=== PATIENT | male | born 1960 | race Caucasian/White ===

== ENCOUNTER 2018-05-25 08:30 | Day surgery (SDC) | payer BC ==
[~2018-05-25 08:30] MED LIST: Lactated Ringers 1,000 ML IV SCH
[2018-05-25] MEDS ORDERED: Lidocaine/EPINEPHrine/Tetracaine Soln 5 ML Each TOP ONE (10:10)
[2018-05-25] MEDS ORDERED: Midazolam 1 MG/ML 2 ML SDV ONE (11:23)
[2018-05-25] MEDS ORDERED: Propofol 200 MG/20 ML SDV ONE ×2 (11:23→12:01)
[2018-05-25] MEDS ORDERED: fentaNYL 100 MCG/2 ML SDV ONE (11:23)
--- NOTE | 2018-05-25 13:01 | OR ---
PREOPERATIVE DIAGNOSIS: Screening colonoscopy. POSTOPERATIVE DIAGNOSIS: Normal colonoscopic exam. PROCEDURE PROPOSED: Total flexible colonoscopy. PROCEDURE DONE: Total flexible colonoscopy. INDICATION: This is a 58-year-old gentleman who comes in for a 10-year followup screening colonoscopy. He denies any symptomatology. He does feel he likely has some hemorrhoids internally and externally. He has a negative family history for any colon cancer. DESCRIPTION OF PROCEDURE: Technique and Findings: The patient was brought to the endoscopy suite, placed in left lateral decubitus position. He was sedated per FI[employer] GROWER with propofol. The flexible video colonoscope was then passed transanally and under visualization advanced to the cecum. Examination revealed normal ascending, transverse, descending, sigmoid, and rectal colon. There was no evidence of any polyps, colitis, diverticulosis, or any other abnormalities and the anal exam will be performed more thoroughly with a lighted anoscope. His prostate exam was normal on digital exam. IMPRESSION: Normal colonoscopic exam. PLAN: The patient will also have anoscopy to further evaluate the anal area. I feel he is good for 10 years before he needs a repeat colonoscopy. SCM: 05/25/2018 12:23:21 MODL: 05/25/2018 12:54:38 /[id number]
--- NOTE | 2018-05-25 13:09 | OR ---
PREOPERATIVE DIAGNOSIS: Anal protrusion with bleeding. POSTOPERATIVE DIAGNOSIS: Internal hemorrhoids, probable minor rectal prolapsing, 3 external anal tags. PROCEDURE PROPOSED: Anoscopy. PROCEDURE DONE: Lighted anoscopy with hemorrhoid banding x2. DESCRIPTION OF PROCEDURE: Technique: The patient was already sedated from his colonoscopy. The lighted anoscope was then inserted and he was inspected in the right anterior, right posterior, and left lateral quadrants. He appeared to have some mildly edematous mucosa compatible with some rectal prolapsing but he also appeared to have some internal hemorrhoids. I banded an internal hemorrhoids at the right anterior quadrant and one in the right posterior quadrant using suction hemorrhoid banding technique. He tolerated the procedure well. FINAL IMPRESSION: 1. Internal hemorrhoids, banding x2 done. 2. Probable mild rectal prolapsing as well. PLAN: We will wait and see how much the hemorrhoid banding helps him. He potentially may need further intervention for his problem such as stapled hemorrhoidopexy procedure with excision of the external tags at the same time that would be a decision for later down the road if he has not been helped with what was done today. SCM: 05/25/2018 12:23:21 MODL: 05/25/2018 12:57:26 /[id number]
== END 2018-05-25 14:10 | disposition home or self-care (01) ==
LOC: VM.SDS 08:30
PROVIDERS: ATTEND Surgery
DX: K64.8 Other hemorrhoids (principal); K64.4 Residual hemorrhoidal skin tags; Z12.11 Encounter for screening for malignant neoplasm of colon; I10 Essential (primary) hypertension; E11.9 Type 2 diabetes mellitus without complications; E66.01 Morbid (severe) obesity due to excess calories; Z99.89 Dependence on other enabling machines and devices; J45.909 Unspecified asthma, uncomplicated; G47.33 Obstructive sleep apnea (adult) (pediatric); K21.9 Gastro-esophageal reflux disease without esophagitis; Z79.899 Other long term (current) drug therapy
CPT/HCPCS: A9270-GY; J2250; J2704; J3010; J7120

== ENCOUNTER 2018-10-30 09:22 | Day surgery (SDC) | payer BC ==
[~2018-10-30 09:22] MED LIST changes: +Sodium Chloride 0.9% 10 ML Syringe FLUSH PRN; +ceFAZolin 1 GM Vial IVPUSH ONE
[2018-10-30] MEDS ORDERED: Midazolam 1 MG/ML 2 ML SDV ONE ×2 (11:26→12:29)
[2018-10-30] MEDS ORDERED: ceFAZolin 1 GM Vial ONE (11:26)
[2018-10-30] MEDS ORDERED: fentaNYL 100 MCG/2 ML SDV ONE (11:26)
[2018-10-30] MEDS ORDERED: Ketamine 200 MG/20 ML MDV ONE (11:26)
[2018-10-30] MEDS ORDERED: Phenylephrine 1% 10 MG/ML SDV ONE ×2 (12:54→13:24)
[2018-10-30] MEDS ORDERED: Bupivacaine 0.25%/EPINEPHrine 1:200,000 30 ML SDV INJECT ONE ×2 (13:11)
[2018-10-30] MEDS ORDERED: Ondansetron 4 MG/2 ML SDV IVPUSH PRN (14:08)
[2018-10-30] MEDS ORDERED: Morphine 2 MG/ML Syringe IVPUSH PRN (14:09)
[2018-10-30] MEDS ORDERED: Ibuprofen 200 MG Tab PO PRN (14:13)
--- NOTE | 2018-10-30 14:16 | OR ---
PREOPERATIVE DIAGNOSES: 1. Rectal prolapse with hemorrhoids. 2. External anal tags. POSTOPERATIVE DIAGNOSES: 1. Rectal prolapse with hemorrhoids. 2. External anal tags. PROCEDURE PROPOSED: 1. Circular stapled hemorrhoidopexy. 2. Excision of external hemorrhoidal tags x2. PROCEDURE DONE: 1. Circular stapled hemorrhoidopexy. 2. Excision of external hemorrhoidal tags x2. INDICATIONS: This is a 58-year-old gentleman bothered with some hemorrhoids and some mild prolapsing. He did have recent colonoscopy confirming what appears to be some redundance of his rectum, and after discussion of situation, it was felt that he would be a good candidate for the stapled PPH surgery and then also to remove some external anal tags. TECHNIQUE: The patient was brought to the operative suite, initially given a saddle block, put into the prone Sam knife position but started having some trouble breathing. It was felt that the saddle block spinal got a little too high. We therefore repositioned him back onto the cart, and he was intubated by SHINGLES ROOFER and then placed back into the prone Sam knife position, and the perianal area was then sterilely prepped and draped. A perianal block was performed with 0.25% Marcaine with epinephrine using about 20 mL. A 3 finger dilatation was performed. I then used the prepackaged PPH stapler. The circular retractor was put in position and anchored with 4 stitches of 3-0 Prolene. The pursestring suture was then used with 2-0 Prolene, doing a pursestring suture at about 3 cm to 4 cm depth from the dentate line circumferentially. The PPH stapler was then placed across the pursestring line, which was then cinched up, and the 33 mm stapler was fired and held for a minute. It was then opened up, and a complete ring was noted and did not feel the need to be submitted for pathologic examination. The stapled ring was inspected and appeared to be good without any signs of bleeding. He had 2 significant external anal tags that were removed. They were fairly close in proximity, and then an open incision was closed in a circumferential direction with a running 4-0 Vicryl. After completion, everything looked much improved from his preoperative condition, and he was placed back onto his back on the cart and recovered by SHINGLES ROOFER and taken to the recovery room in good condition. Blood loss was less than 5 mL. SCM: 10/30/2018 13:40:13 MODL: 10/30/2018 14:10:48 /[id number]
[2018-10-30] MEDS ORDERED: Ketorolac 30 MG/ML SDV IVPUSH ONE (14:26)
== END 2018-10-30 17:22 | disposition home or self-care (01) ==
LOC: VM.SDS 09:22
PROVIDERS: ATTEND Surgery
DX: K62.3 Rectal prolapse (principal); K64.9 Unspecified hemorrhoids; K64.4 Residual hemorrhoidal skin tags
CPT/HCPCS: 46230; 46947; J0690; J1885; J2250; J2270; J2370; J3010; J7120

== ENCOUNTER 2020-01-07 18:55 | Emergency (ER) | payer BC ==
[2020-01-07] MEDS ORDERED: Sodium Chloride 0.9% 10 ML Syringe FLUSH PRN (19:11)
[2020-01-07] MEDS ORDERED: methylPREDNISolone Sodium Succinate 125 MG/2 ML SDV IVPUSH ONE (19:19)
--- NOTE | 2020-01-07 19:36 | EDM.PDOC ---
ED HPI GENERAL MEDICAL PROBLEM - General Chief Complaint: Respiratory Problem Stated Complaint: WORSENING SOB Time Seen by Provider: 01/07/20 19:00 Source of Information: Reports: Patient History Limitations: Reports: No Limitations - History of Present Illness INITIAL COMMENTS - FREE TEXT/NARRATIVE: Patient comes into the emergency department with progressing shortness of breath with COVID-19 diagnosis. Patient states that he was diagnosed with Covid 19 approximately 1 week ago with mild to moderate symptoms of body ache, fatigue, low-grade fever less than 100, and cough. However the patient states in the last 24 hours he has had an increasing in shortness of breath. He states that it is worse when he is walking up the stairs. He states that it does take him quite a few minutes after walking up the steps to regain his shortness of breath. He denies having any shortness of breath at rest at rest. Patient states that his ongoing fatigue has been significant this entire time that has not improved. Patient has been taking [id number] zinc, vitamin D, and vitamin C to help with improving his symptoms. Patient states that he is concerned regarding increase shortness of breath for he does have underlying diagnosis of asthma which he has needed his inhaler more significantly in the last 24 hours as well as sleep apnea. Onset: Sudden Quality: Reports: Other Severity: Moderate Improves with: Reports: Rest Worsens with: Reports: Movement Associated Symptoms: Reports: No Other Symptoms mild headache Pain Score (Numeric/FACES): 2 - Related Data Allergies Allergy/AdvReac Type Severity Reaction Status Date / Time shellfish derived Allergy Severe Anaphylactic Verified 01/07/20 20:23 Shock cat dander Allergy Intermediate Itching Verified 01/07/20 20:23 chlorhexidine Allergy Intermediate Itching Verified 01/07/20 20:23 [From Hibiclens] nitrile Allergy Itching Verified 01/07/20 20:23 MICHOACANO Inhibitors AdvReac Intermediate Cough Verified 01/07/20 20:23 Home Meds: Home Meds Acetaminophen [Tylenol Extra Strength] 1,000 mg PO Q4H PRN 01/29/18 [History] Albuterol Sulfate [Proair Hfa] 2 puff IH Q4H PRN 01/29/18 [History] Aspirin [Halfprin] 81 mg PO DAILY 01/29/18 [History] Azelastine HCl [Azelastine] 2 spray JA BID PRN 01/29/18 [History] Benzonatate [Tessalon Perle] 100 mg PO TID PRN 01/29/18 [History] Calcium Gluconate 2,000 mg PO DAILY 01/29/18 [History] Cholecalciferol (Vitamin D3) [Vitamin D3] 5,000 unit PO DAILY 01/29/18 [History] Clobetasol Propionate [Temovate Cream] 1 applic TP BID PRN 01/29/18 [History] Cyanocobalamin (Vitamin B-12) [B-12] 1,000 mcg PO DAILY 01/29/18 [History] EPINEPHrine [Auvi-Q] 0.3 mg IJ ASDIRECTED PRN 01/29/18 [History] Fluticasone/Salmeterol [Advair 100-50] 1 puff INH BID 01/29/18 [History] Montelukast [Singulair] 10 mg PO DAILY 01/29/18 [History] Multivitamin [Multi-Vitamin Daily] 1 each PO DAILY 01/29/18 [History] Orphenadrine [Norflex] 100 mg PO BID 01/29/18 [History] Thiamine HCl 125 mg PO DAILY 01/29/18 [History] Triamcinolone Acetonide [Triamcinolone Acetonide 0.025%] 1 dose TP BID 01/29/18 [History] predniSONE [Prednisone] 20 mg PO ASDIRECTED PRN 01/29/18 [History] Cyclobenzaprine [Flexeril] 10 mg PO TID PRN 05/21/18 [History] Erythromycin Base in Ethanol [Erythromycin 2% Gel] 1 dose TP BID 05/21/18 [History] Iron 120 mg PO BID 05/21/18 [History] [place]-3/DHA/Epa/Fish Oil [[place]-3 Fish Oil 1,000 MG Sfgl] 1,000 mg PO DAILY 05/21/18 [History] Testosterone Cypionate [Depo-Testosterone] 250 mg IM Q14D 05/21/18 [History] Desloratadine 5 mg PO DAILY 10/22/18 [History] Econazole Nitrate 1 applic TP BID 10/22/18 [History] Fluticasone Furoate [Flonase Sensimist] 1 spray NASBOTH DAILY 10/22/18 [History] Non-Formulary Medication [NF Drug] 1 tab PO DAILY 10/22/18 [History] Azithromycin 250 mg PO 5XDAY #6 tablet 01/07/20 [Rx] predniSONE [Prednisone] 20 mg PO BID 5 Days #10 tablet 01/07/20 [Rx] Past Medical History HEENT History: Reports: Allergic Rhinitis Cardiovascular History: Reports: High Cholesterol, Hypertension, Other (See Below) Other Cardiovascular History: venous statis. elevated LFT. 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 Gastrointestinal History: Reports: GERD, Hemorrhoids Genitourinary History: Reports: Other (See Below) Other Genitourinary History: Erectile dysfunction Musculoskeletal History: Reports: Osteoarthritis, Other (See Below) Other Musculoskeletal History: chronic pain Psychiatric History: Reports: Depression, Eating Disorders Endocrine/Metabolic History: Hematologic History: Reports: Anemia, Iron Deficiency Immunologic History: Reports: Other (See Below) Other 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 upper gastrointestinal endoscopy. vertical banded gastroplasty. hemorrhoidectomy Musculoskeletal Surgical History: Reports: Joint Replacement, Other (See Below) Other Musculoskeletal Surgeries/Procedures:: partial removal of sternum ED ROS GENERAL - Review of Systems Review Of Systems: See Below Constitutional: Reports: Malaise, Weakness, Fatigue HEENT: Reports: No Symptoms Respiratory: Reports: Shortness of Breath, Wheezing, Cough Cardiovascular: Reports: No Symptoms Endocrine: Reports: Fatigue GI/Abdominal: Reports: No Symptoms : Reports: No Symptoms Musculoskeletal: Reports: No Symptoms Skin: Reports: No Symptoms Neurological: Reports: No Symptoms Psychiatric: Reports: No Symptoms Hematologic/Lymphatic: Reports: No Symptoms Immunologic: Reports: No Symptoms ED EXAM, GENERAL - Physical Exam Exam: See Below Exam Limited By: No Limitations General Appearance: Alert, WD/WN, No Apparent Distress Eye Exam: Bilateral Eye: EOMI, PERRL Nose: Normal Inspection, Normal Mucosa Throat/Mouth: Normal Inspection, Normal Lips, Normal Oropharynx, Normal Voice Head: Atraumatic, Normocephalic Neck: Normal Inspection, Supple, Non-Tender Respiratory/Chest: Decreased Breath Sounds, Wheezing Cardiovascular: Normal Peripheral Pulses, Regular Rate, Rhythm, No Edema GI/Abdominal: Normal Bowel Sounds, Soft, Non-Tender, No Distention, No Abnormal Bruit Back Exam: Normal Inspection, Full Range of Motion Extremities: Normal Inspection, Normal Range of Motion, Non-Tender, Normal Capillary Refill Neurological: Alert, Oriented, CN II-XII Intact, Normal Gait, No Motor/Sensory Deficits Psychiatric: Normal Affect, Normal Mood Skin Exam: Warm, Dry, Intact Course - Vital Signs Last Recorded V/S: Last Vital Signs Temp 36.6 C 01/07/20 19:05 Pulse 72 01/07/20 19:05 Resp 16 01/07/20 19:05 BP 142/86 H 01/07/20 19:05 Pulse Ox 97 01/07/20 19:05 - Orders/Labs/Meds Orders: Active Orders 24 hr Category Date Time Status EKG Documentation Completion [RC] STAT Care 01/07/20 19:10 Active PROCALCITONIN [REF] Stat Lab 01/07/20 19:25 Received Sodium Chloride 0.9% [Saline Flush] Med 01/07/20 19:11 Active 10 ml FLUSH ASDIRECTED PRN Peripheral IV Insertion Adult [OM.PC] Stat Oth 01/07/20 19:10 Ordered Medication Orders Sodium Chloride (Saline Flush) 10 ml FLUSH ASDIRECTED PRN PRN Reason: Keep Vein Open Labs: Laboratory Tests 01/07/20 01/07/20 01/07/20 Range/Units 19:25 19:25 19:25 WBC 5.4 (4.0-10.0) x10^3/uL RBC 4.28 L (4.5-6.0) x10^6/uL Hgb 12.8 L D (14.0-18.0) g/dL Hct 38.3 L (40.0-52.0) % MCV 89.5 (78.0-93.0) fL MCH 29.9 (26.0-32.0) pg MCHC 33.4 (32.0-36.0) g/dL RDW Coeff of Oskar 12.8 (10.0-15.0) % Plt Count 143 (130-400) x10^3/uL Neut % (Auto) 69.7 (50.0-80.0) % Lymph % (Auto) 22.0 L (25.0-50.0) % Navarro % (Auto) 7.0 (2.0-11.0) % Eos % (Auto) 1.1 (0.0-4.0) % Baso % (Auto) 0.2 (0.2-1.2) % Sodium 134 L (136-145) mmol/L Potassium 3.8 (3.5-5.1) mmol/L Chloride 99 (98-107) mmol/L Carbon Dioxide 25 (21-32) mmol/L Anion Gap 13.8 (10-20) mmol/L BUN 15 (7-18) mg/dL Creatinine 1.0 (0.70-1.30) mg/dL Est Cr Clr Drug Dosing TNP Estimated GFR (MDRD) > 60 Glucose 300 H (74-106) mg/dL Lactic Acid 1.8 (0.4-2.0) mmol/L Calcium 8.3 L (8.5-10.1) mg/dL Corrected Calcium 8.62 (8.5-10.1) mg/dL Total Bilirubin 0.5 (0.2-1.0) mg/dL AST 57 H (15-37) U/L ALT 90 H (16-63) U/L Alkaline Phosphatase 90 (46-116) U/L NT-Pro-B Natriuret Pep 48 (<=125) pg/mL Total Protein 7.0 (6.4-8.2) g/dL Albumin 3.6 (3.4-5.0) g/dL Globulin 3.4 Albumin/Globulin Ratio 1.06 Meds: Medications Generic Name Dose Route Start Last Admin Trade Name Freq PRN Reason Stop Dose Admin Sodium Chloride 10 ml 01/07/20 19:11 Saline Flush FLUSH ASDIRECTED PRN Keep Vein Open Discontinued Medications Generic Name Dose Route Start Last Admin Trade Name Freq PRN Reason Stop Dose Admin Ceftriaxone Sodium 1 gm 01/07/20 20:23 Rocephin IVPUSH 01/07/20 20:24 ONETIME ONE Methylprednisolone Sodium Succinate 125 mg 01/07/20 19:19 Solu-Medrol IVPUSH 01/07/20 19:20 ONETIME ONE Departure - Departure Time of Disposition: 20:30 Disposition: Home, Self-Care 01 Condition: Good Clinical Impression: Pneumonia due to COVID-19 virus Pneumonia Qualifiers: Pneumonia type: due to unspecified organism Laterality: bilateral Lung location: lower lobe of lung Qualified Code(s): J18.9 - Pneumonia, unspecified organism - Discharge Information *PRESCRIPTION DRUG MONITORING PROGRAM REVIEWED*: Not Applicable *COPY OF PRESCRIPTION DRUG MONITORING REPORT IN PATIENT TIGIST: Not Applicable Prescriptions: Azithromycin 250 mg PO 5XDAY #6 tablet predniSONE [Prednisone] 20 mg PO BID 5 Days #10 tablet Instructions: Ceftriaxone injection, Community-Acquired Pneumonia, Adult, Probiotics Referrals: Hedy Ramirez DO [Primary Care Provider] - Forms: ED Department Discharge Additional Instructions: 1. rest 2. increase your water intake 3. Take all antibiotics as prescribed even if feeling better 4. Take a probiotic while on antibiotics to help promote healthy GI motility 5. Activity and diet as tolerated 6. Can use Ibuprofen and tylenol for any fever or discomfort 7. Follow up with your PCP or return if symptoms progress or worsen 8. Education provided to you regarding your illness, probiotics, antibiotic prescribed 9. Call with any questions or concerns Sepsis Event Note (ED) - Focused Exam Vital Signs: Vital Signs Temp Pulse Resp BP Pulse Ox 01/07/20 19:05 36.6 C 72 16 142/86 H 97 - My Orders Last 24 Hours: My Active Orders 01/07/20 19:10 EKG Documentation Completion [RC] STAT Peripheral IV Insertion Adult [OM.PC] Stat 01/07/20 19:11 Sodium Chloride 0.9% [Saline Flush] 10 ml FLUSH ASDIRECTED PRN 01/07/20 19:25 PROCALCITONIN [REF] Stat - Assessment/Plan Last 24 Hours: My Active Orders 01/07/20 19:10 EKG Documentation Completion [RC] STAT Peripheral IV Insertion Adult [OM.PC] Stat 01/07/20 19:11 Sodium Chloride 0.9% [Saline Flush] 10 ml FLUSH ASDIRECTED PRN 01/07/20 19:25 PROCALCITONIN [REF] Stat Assessment:: 1. SOB 2. Pneumonia- secondary to covid-19 Plan: 1. Labs completed in the ER. Results reviewed with the patient 2. IV initiated in the emergency department 3. chest xray completed in the ER 4. EKG completed in the ER 5. Rocephin 1gm given in the ER 6. Script sent home with azithromycin and prednisone 7. Patient and nursing staff was updated regarding the plan of care 8. Education provided the patient regarding activity, diet, rest, [id number] medication modalities, and follow-up care was provided 9. Patient and family are agreeable to the above plan of care 10. All questions and concerns were addressed with the patient and family prior to discharge 11. Did discuss the use of Bamlanivimab. Currently patient has a BMI of >35 and is older than 55> but does not have CAD, HTN or COPD. Currently we will withhold using this medication unless he returns with worsening symptoms despite use of abx treatment and steroids for pneumonia. Patient is agreeable with this plan.
[2020-01-07 19:55] LABS: CHLORIDE,CL 99 mmol/L (98-107); SODIUM,NA 134 mmol/L (136-145)
[2020-01-07 19:56] LABS: ANION GAP 13.8 mmol/L (10-20)
--- NOTE | 2020-01-07 20:13 | CR ---
[id number] RAD/RAD Chest Portable EXAM: RAD Chest Portable INDICATION: SOB, COVID+ COMPARISON: None. DISCUSSION: Cardiomediastinal silhouette is normal in size and contour. Bibasilar infiltrates. No pneumothorax or pleural effusion. IMPRESSION: Bibasilar pulmonary infiltrates. Findings are likely infectious/inflammatory in nature. Syed Caraballo DO 01/07/202011 Thank you for allowing us to participate in the care of your patient.
[2020-01-07] MEDS ORDERED: cefTRIAXone 1 GM Vial IVPUSH ONE (20:23)
== END 2020-01-07 21:00 | disposition home or self-care (01) ==
LOC: VM.ED 18:55
DX: U07.1 COVID-19 (principal); J12.89 Other viral pneumonia; I10 Essential (primary) hypertension; J45.909 Unspecified asthma, uncomplicated; M19.90 Unspecified osteoarthritis, unspecified site; Z91.048 Other nonmedicinal substance allergy status; Z88.8 Allergy status to other drugs, medicaments and biological substances; Z91.013 Allergy to seafood; Z79.82 Long term (current) use of aspirin; Z79.899 Other long term (current) drug therapy
CPT/HCPCS: 36415; 71045; 80053; 83605; 83880; 84145; 85025; 93005; 96374; 96375; 99284; 99285; J0696; J2930

== ENCOUNTER → 2024-02-06 | Day surgery (SDC) | payer MEDICARE, BC ==
[~2024-02-06] MED LIST changes: -Lactated Ringers 1,000 ML IV SCH; +Lidocaine 4% 5 ML Amp ONE; +Propofol 200 MG/20 ML SDV ONE; -Sodium Chloride 0.9% 10 ML Syringe FLUSH PRN; -ceFAZolin 1 GM Vial IVPUSH ONE; +fentaNYL 100 MCG/2 ML SDV ONE
[2024-02-06] MEDS: Lactated Ringers 1,000 ML IV SCH (09:59)
== END ==
LOC: VM.SDS 09:41
PROVIDERS: ATTEND Student in an Organized Health Care Education/Training Program
DX: R10.13 Epigastric pain (principal); E11.9 Type 2 diabetes mellitus without complications; J45.30 Mild persistent asthma, uncomplicated; K21.9 Gastro-esophageal reflux disease without esophagitis; F41.9 Anxiety disorder, unspecified; E66.812 Obesity, class 2; Z68.35 Body mass index [BMI] 35.0-35.9, adult; Z79.84 Long term (current) use of oral hypoglycemic drugs; Z79.899 Other long term (current) drug therapy; Z88.8 Allergy status to other drugs, medicaments and biological substances
CPT/HCPCS: 00731; 82947; J2704; J3010; J3490; J7120